=== PATIENT | female | born 1950 | race African-American/Black ===

== ENCOUNTER 2020-11-23 04:29 | Day surgery (SDC) | payer OTHER, BC ==
[2020-11-22 13:09] VITALS: BMI 32.1
[2020-11-23] MEDS ORDERED: ONDANSETRON 4 MG/2 ML VIAL IVPUSH PRN (10:58)
[2020-11-23] MEDS ORDERED: IBUPROFEN 800 MG/8 ML IJ IVPB PRN (10:58)
[2020-11-23] MEDS ORDERED: oxyCODONE HCL 5 MG TABLET PO PRN (10:58)
[2020-11-23] MEDS ORDERED: IBUPROFEN 600 MG TABLET (FP) PO PRN (10:58)
[2020-11-23] MEDS ORDERED: ELECTROLYTE-148 SOLN 1,000 ML IV SCH (11:00)
[2020-11-23] MEDS ORDERED: MIDAZOLAM HCL 2 MG/2 ML SINGLE DOSE VIAL ONE (12:39)
[2020-11-23] MEDS ORDERED: SUCCINYLCHOLINE CHLORIDE 200 MG/10 ML SYRINGE ONE ×2 (12:39→12:42)
[2020-11-23] MEDS ORDERED: PROPOFOL 20 ML ONE ×3 (12:39→12:40)
[2020-11-23] MEDS ORDERED: ROCURONIUM BROMIDE 50 MG/5 ML SYRINGE ONE (13:06)
[2020-11-23] MEDS ORDERED: NEOSTIGMINE METHYLSULFATE 0.5 MG/ML - 10 ML MDV ONE (13:20)
[2020-11-23] MEDS ORDERED: LACTATED RINGERS SOLUTION 1,000 ML IV SCH (13:30)
[2020-11-23 17:34] VITALS: BP 117/54; PULSE 60; TEMP 97.4
== END 2020-11-23 17:30 | disposition home or self-care (01) ==
LOC: JASU-SURG 04:29
PROVIDERS: ATTEND Obstetrics & Gynecology
PROC: 0UB98ZX Excision of Uterus, Via Natural or Artificial Opening Endoscopic, Diagnostic (ICD-10-PCS; principal; 2020-11-23 13:30)
PROC: 0UDB8ZX Extraction of Endometrium, Via Natural or Artificial Opening Endoscopic, Diagnostic (ICD-10-PCS; 2020-11-23 13:30)
DX: N84.0 Polyp of corpus uteri (principal); N88.2 Stricture and stenosis of cervix uteri
CPT/HCPCS: 88305-TC; 94760